=== PATIENT | female | born 1940 | race Caucasian/White ===

== ENCOUNTER → 2024-05-02 11:29 | Outpatient (REF) | payer MEDICARE, OTHER, SELFPAY | LOC: RAD 11:29 | PROVIDERS: ATTENDING PHYSICIAN Student in an Organized Health Care Education/Training Program | DX: S20.219A Contusion of unspecified front wall of thorax, initial encounter (principal) | CPT/HCPCS: 71110; 71120 ==

== ENCOUNTER → 2024-11-24 09:48 | Outpatient (REF) | payer MEDICARE, OTHER, SELFPAY | LOC: RCS 09:48 | PROVIDERS: ATTENDING PHYSICIAN Student in an Organized Health Care Education/Training Program; REFERRING PHYSICIAN Dermatology | DX: I34.0 Nonrheumatic mitral (valve) insufficiency (principal); R23.3 Spontaneous ecchymoses | CPT/HCPCS: 73120; 93306 ==

== ENCOUNTER → 2025-01-21 10:48 | Outpatient (REF) | payer MEDICARE, OTHER, SELFPAY | LOC: RAD 10:48 | PROVIDERS: ATTENDING PHYSICIAN Student in an Organized Health Care Education/Training Program | DX: M25.561 Pain in right knee (principal) | CPT/HCPCS: 73560 ==

== ENCOUNTER → 2025-06-25 13:07 | Outpatient (REF) | payer MEDICARE, OTHER, SELFPAY | LOC: RAD 13:07 | PROVIDERS: ATTENDING PHYSICIAN Nurse Practitioner Adult Health; FAMILY PHYSICIAN Family Medicine | DX: I26.99 Other pulmonary embolism without acute cor pulmonale (principal); R06.89 Other abnormalities of breathing | CPT/HCPCS: 71046; 78582; A9540; A9567 ==